=== PATIENT | male | born 1940 | race Caucasian/White ===

== ENCOUNTER 2017-02-23 09:25 | Emergency (ER) | payer MEDICARE, OTHER ==
[2017-02-23] MEDS ORDERED: SODIUM CHLORIDE 0.9% 1,000 ML IV ONE (09:45)
[2017-02-23] MEDS ORDERED: ONDANSETRON 4 MG/2 ML VIAL IVP STA (09:45)
--- NOTE | 2017-02-23 09:54 | ED Physician Documentation ---
History of Present Illness - Stated complaint Stated Complaint: ABD PX - Chief complaint Chief Complaint: Abd Pain - Additonal information Additional information: hx from pt 76 male prior surgery = regis ingiuinal hernia repairs approx 5 yr ago at [facility] to ER today with approx 5 days of nausea, no vomit, abd bloating, lower abd discomfort, and diarrhea - does not know if it is bloody because he is legally blind sx started approx a week after he returned from a fishing trip to [place], the friend he was fishing with is also ill with similar sx, they do not recall eating any bad food, no other travel, no recent ab Review of Systems Constitutional: denies: Fever, Chills Throat: denies: Sore throat Cardiac: denies: Chest pain / pressure Respiratory: denies: Dyspnea GI: reports: Abdominal Pain, Abdominal Swelling, Nausea, Diarrhea. denies: Bloody / black stool : denies: Dysuria Endocrine: denies: Easy bruising / bleeding Immunocompromised: denies: Immunocompromised PD PAST MEDICAL HISTORY - Past Medical History Past Medical History: Yes Cardiovascular: Hypertension : Other Musculoskeletal: Osteoarthritis - Past Surgical History Past Surgical History: Yes Ortho: Hip replacement, Shoulder arthroplasty, Other - Present Medications Home Medications: Ambulatory Orders Medication Instructions Recorded Confirmed Atenolol 25 mg PO BID 02/05/16 02/23/17 Tamsulosin [Flomax] 0.8 mg PO DAILY 02/05/16 02/23/17 Amox/Clav 875/125 [Augmentin] 1 each PO Q12H #20 tablet 02/23/17 Docusate Sodium 250Mg Capsule 250 mg PO DAILY #30 capsule 02/23/17 [Colace 250Mg Capsule] Hydroxychloroquine [Plaquenil] 200 mg PO DAILY 02/23/17 02/23/17 - Allergies Allergies/Adverse Reactions: Allergies Allergy/AdvReac Type Severity Reaction Status Date / Time propoxyphene HCl * AdvReac Diaphoresis Verified 02/05/16 20:41 [From [place]] - Social History Does the pt smoke?: No Smoking Status: Never smoker Does the pt drink ETOH?: Yes Does the pt have substance abuse?: No - Immunizations Immunizations are current?: No Immunizations: TDAP >10years/unknown PD ED PE NORMAL - Vitals Vital signs reviewed: Yes - General General: Alert and oriented X 3 - HEENT HEENT: PERRL - Neck Neck: Supple, no meningeal sign - Cardiac Cardiac: RRR - Respiratory Respiratory: No respiratory distress, Clear bilaterally - Abdomen Abdomen: Normal bowel sounds, Soft, Other (mild distension, TTP across lower abd s rebound or guarding) - Derm Derm: Normal color - Extremities Extremities: No deformity - Neuro Neuro: Alert and oriented X 3 Results - Vitals Vitals: Vital Signs - 24 hr 02/23/17 09:33 Temperature 35.6 C L Heart Rate 62 Respiratory 16 Rate Blood Pressure 172/73 H O2 Saturation 97 Oxygen O2 Source Room air - Labs Labs: Laboratory Tests 02/23/17 02/23/17 08:45 08:45 WBC 7.2 RBC 4.50 L Hgb 14.5 Hct 41.7 L MCV 92.8 MCH 32.3 H MCHC 34.8 RDW 12.6 Plt Count 116 L MPV 10.7 Neut # 5.0 Lymph # 0.9 L [place] # 1.1 H Eos # 0.2 Baso # 0.0 Absolute Nucleated RBC 0.00 Nucleated RBCs 0.1 Sodium 137 Potassium 3.9 Chloride 104 Carbon Dioxide 25 Anion Gap 8.0 BUN 17 Creatinine 0.9 Estimated GFR (MDRD) 82 L Glucose 138 H Calcium 9.2 Total Bilirubin 1.0 AST 25 ALT 27 Alkaline Phosphatase 68 Total Protein 6.9 Albumin 3.8 Globulin 3.1 Albumin/Globulin Ratio 1.2 Lipase 22 - Rads (name of study) CT abd pelvis Radiology: See rad report (early diverticulitis proximal sigmoid, no perf or abscess, appendix not seen but no secondary signs of appendicitis) PD MEDICAL DECISION MAKING - ED course ED course: uncomplicated diverticulitis can be txed as ouptpt with close fup Departure - Departure Disposition: 01 Home, Self Care Clinical Impression: Diverticulitis Qualifiers: Diverticulitis site: large intestine Diverticulitis bleeding: without bleeding Diverticulitis complication: without perforation or abscess Qualified Code(s): K57.32 - Diverticulitis of large intestine without perforation or abscess without bleeding Condition: Good Instructions: ED Diverticulitis, ED Diet Clear Liquid Follow-Up: Norbert Mendoza MD [Primary Care Provider] - Prescriptions: Amox/Clav 875/125 [Augmentin] 1 each PO Q12H #20 tablet Docusate Sodium 250Mg Capsule [Colace 250Mg Capsule] 250 mg PO DAILY #30 capsule Comments: The CT scan shows that you have diverticulitis - an infection of the small pouches that develop along the wall of the colon over time. There is no perforation or abscess and your lab works looks good. So I think it is safe for you to be treated with antibiotics at home and hat you do not need to be admitted to the hospital at this time. However, some case of diverticulitis, whether admitted to the hospital or not, get worse and do perforate or develop and abscess. So close follow up with your PMD is very important and if you get worse you should come back to the ER. It would also help if you stayed on a clear liquid diet for the next 2 days to rest your bowels. After that may advance your diet but try to avoid food with small sharp bits like seeds and popcorn. Also please get your blood pressure rechecked - it was high today
[2017-02-23 10:00] LABS: BASOPHILS % (AUTO) 0.6 %; EOSINOPHILS # (AUTO) 0.2 10^3/uL (0.0-0.7); HCT - HEMATOCRIT 41.7 % (42.0-52.0); HGB - HEMOGLOBIN 14.5 g/dL (14.0-18.0); LYMPHOCYTES # (AUTO) 0.9 10^3/uL (1.5-3.5); LYMPHOCYTES % (AUTO) 11.8 %; MEAN CORPUSCULAR HEMOGLOBIN 32.3 pg (27.0-31.0); MEAN CORPUSCULAR HGB CONC 34.8 g/dL (32.0-36.0); MEAN CORPUSCULAR VOLUME 92.8 fL (80.0-94.0); MEAN PLATELET VOLUME 10.7 fL (7.4-11.4); MONOCYTES # (AUTO) 1.1 10^3/uL (0.0-1.0); MONOCYTES % (AUTO) 15.6 %; NUCLEATED RED BLOOD CELLS AUTO 0.1 /100WBC; RED CELL DISTRIBUTION WIDTH 12.6 % (12.0-15.0); UNCORRECTED WHITE BLOOD COUNT 7.2 x10^3/uL; WHITE BLOOD COUNT 7.2 x10^3/uL (4.8-10.8)
[2017-02-23] MEDS ORDERED: ONDANSETRON 4 MG/2 ML VIAL ONE (10:05)
[2017-02-23 10:10] LABS: ALBUMIN/GLOBULIN RATIO 1.2 (1.0-2.2); CALCIUM 9.2 mg/dL (8.5-10.3); CREATININE 0.9 mg/dL (0.6-1.2); POTASSIUM 3.9 mmol/L (3.5-5.0); TOTAL PROTEIN 6.9 g/dL (6.7-8.2)
--- NOTE | 2017-02-23 10:38 | CT Preliminary Report ---
Exam: CT Abdomen/Pelvis W/O IMPRESSION: 1. Early diverticulitis of the proximal sigmoid colon without evidence of perforation. 2. No bowel obstruction. 3. The appendix is not visualized but there are no secondary signs of acute appendicitis. [facility] SITE ID: [id number]
--- NOTE | 2017-02-23 10:40 | CT Report ---
EXAM: CT ABDOMEN AND PELVIS (CT KUB) EXAM DATE: 02/23/2017 10:06 AM. CLINICAL HISTORY: Lower abd pain and bloating. COMPARISONS: None. TECHNIQUE: Routine axial helical CT imaging was performed through the abdomen and pelvis without IV c ontrast. Reconstructions: Coronal and sagittal. In accordance with CT protocol optimization, one or more of the following dose reduction techniques w ere utilized for this exam: automated exposure control, adjustment of mA and/or KV based on patient s ize, or use of iterative reconstructive technique. FINDINGS: Lung Bases: Unremarkable. Right Kidney/Ureter: No stones, hydronephrosis, or hydroureter. No perinephric fat stranding. Left Kidney/Ureter: No stones, hydronephrosis, or hydroureter. No perinephric fat stranding. Other Solid Organs: Noncontrast images of the solid organs are grossly unremarkable. Gallbladder/Bile Ducts: Unremarkable. Peritoneal Cavity: Diverticula in the descending colon and sigmoid colon with mild adjacent fat stran ding in the proximal sigmoid colon. No free air-fluid the abdomen or pelvis. No bowel obstruction. Th e appendix is not visualized but there are no secondary signs of acute appendicitis. Pelvic Organs: No bladder stones or wall thickening. Noncontrast images of the visualized pelvic orga ns are unremarkable. Vasculature: Unremarkable. Other: None. IMPRESSION: 1. Early diverticulitis of the proximal sigmoid colon without evidence of perforation. 2. No bowel obstruction. 3. The appendix is not visualized but there are no secondary signs of acute appendicitis. [facility] Referring Provider Line: [phone] SITE ID: [id number]
[2017-02-23] MEDS ORDERED: AMOX/CLAV 875 MG/125 MG TABLET PO STA (10:56)
[2017-02-23] MEDS ORDERED: AMOX/CLAV 875 MG/125 MG TABLET PO ONE (11:03)
[2017-02-23 11:14] VITALS: BP 155/82
== END 2017-02-23 11:17 | disposition home or self-care (01) ==
LOC: ED 09:25
DX: K57.32 Diverticulitis of large intestine without perforation or abscess without bleeding (principal); H54.8 Legal blindness, as defined in USA; I10 Essential (primary) hypertension; Z96.649 Presence of unspecified artificial hip joint
CPT/HCPCS: 36415; 74176; 80053; 83690; 85025; 96361; 96374; 99283; 99284; A9270

== ENCOUNTER 2017-05-30 07:13 | Outpatient (CLI) | payer MEDICARE, OTHER ==
[2017-05-30 09:09] LABS: INR 2.1 (0.8-1.2); PT - PROTHROMBIN TIME 22.6 secs (9.9-12.6)
== END 2017-05-30 07:14 | disposition home or self-care (01) ==
LOC: LAB.R 07:13
PROVIDERS: ATTEND Orthopaedic Surgery Adult Reconstructive Orthopaedic Surgery
DX: Z51.81 Encounter for therapeutic drug level monitoring (principal)
CPT/HCPCS: 85610

== ENCOUNTER 2017-06-02 08:00 | Outpatient (CLI) | payer MEDICARE, OTHER ==
[2017-06-02 18:37] LABS: INR 1.6 (0.8-1.2); PT - PROTHROMBIN TIME 17.5 secs (9.9-12.6)
== END 2017-06-02 08:01 | disposition home or self-care (01) ==
LOC: LAB.F 08:00
PROVIDERS: ATTEND Orthopaedic Surgery Adult Reconstructive Orthopaedic Surgery
DX: Z79.01 Long term (current) use of anticoagulants (principal)
CPT/HCPCS: 85610

== ENCOUNTER 2019-07-27 14:55 | Outpatient (CLI) | payer MEDICARE, OTHER ==
[2019-07-27 15:17] LABS: HGB - HEMOGLOBIN 15.2 g/dL (14.0-18.0); MEAN CORPUSCULAR HEMOGLOBIN 32.4 pg (27.0-31.0); MEAN CORPUSCULAR HGB CONC 33.6 g/dL (32.0-36.0); MEAN CORPUSCULAR VOLUME 96.6 fL (80.0-94.0); RED BLOOD COUNT 4.69 10^6/uL (4.70-6.10); RED CELL DISTRIBUTION WIDTH 12.9 % (12.0-15.0); WHITE BLOOD COUNT 7.6 x10^3/uL (4.8-10.8)
[2019-07-27 15:31] LABS: ALBUMIN 4.2 g/dL (3.2-5.5); ALBUMIN/GLOBULIN RATIO 1.8 (1.0-2.2); BILIRUBIN,TOTAL 0.9 mg/dL (0.2-1.0); CALCIUM 9.4 mg/dL (8.5-10.3); CREATININE 1.1 mg/dL (0.6-1.2); TOTAL PROTEIN 6.6 g/dL (6.7-8.2)
== END 2019-07-27 14:56 | disposition home or self-care (01) ==
LOC: LAB 14:55
PROVIDERS: ATTEND Internal Medicine Cardiovascular Disease
DX: R94.39 Abnormal result of other cardiovascular function study (principal)
CPT/HCPCS: 36415; 80053; 85027

== ENCOUNTER 2020-03-05 07:00 | Outpatient (CLI) | payer MEDICARE, OTHER | END 2020-03-05 23:59 | disposition home or self-care (01) | LOC: LAB.R 07:00 | PROVIDERS: ATTEND Internal Medicine | DX: R19.7 Diarrhea, unspecified (principal) | CPT/HCPCS: 81599; 83630; 87045; 87046; 87177; 87209; 87493 ==

== ENCOUNTER 2020-08-13 23:40 | Outpatient (CLI) | payer MEDICARE, OTHER | END 2020-08-13 23:41 | disposition critical access hospital (66) | LOC: EMS 23:40 | PROVIDERS: ATTEND Surgery | DX: R10.84 Generalized abdominal pain (principal); K59.00 Constipation, unspecified; R11.0 Nausea | CPT/HCPCS: A0425; A0427 ==

== ENCOUNTER 2020-08-14 00:13 | Emergency (ER) | payer MEDICARE, OTHER ==
[2020-08-14 00:46] LABS: BASOPHILS # (AUTO) 0.1 10^3/uL (0.0-0.1); BASOPHILS % (AUTO) 0.8 %; EOSINOPHILS # (AUTO) 0.4 10^3/uL (0.0-0.7); EOSINOPHILS % (AUTO) 4.8 %; HGB - HEMOGLOBIN 15.3 g/dL (14.0-18.0); LYMPHOCYTES # (AUTO) 0.9 10^3/uL (1.5-3.5); LYMPHOCYTES % (AUTO) 10.6 %; MEAN CORPUSCULAR HEMOGLOBIN 31.9 pg (27.0-31.0); MEAN CORPUSCULAR HGB CONC 33.1 g/dL (32.0-36.0); MEAN CORPUSCULAR VOLUME 96.5 fL (80.0-94.0); MEAN PLATELET VOLUME 12.8 fL (7.4-11.4); MONOCYTES # (AUTO) 0.5 10^3/uL (0.0-1.0); MONOCYTES % (AUTO) 6.2 %; NEUTROPHILS # (AUTO) 6.8 10^3/uL (1.5-6.6); NEUTROPHILS % (AUTO) 77.3 %; PLT - PLATELET COUNT 90 10^3/uL (130-450); RED BLOOD COUNT 4.79 10^6/uL (4.70-6.10); RED CELL DISTRIBUTION WIDTH 12.8 % (12.0-15.0); WHITE BLOOD COUNT 8.8 x10^3/uL (4.8-10.8)
[2020-08-14 00:57] LABS: ALBUMIN 4.2 g/dL (3.2-5.5); ALBUMIN/GLOBULIN RATIO 1.6 (1.0-2.2); BILIRUBIN,TOTAL 0.9 mg/dL (0.2-1.0); CALCIUM 9.5 mg/dL (8.5-10.3); CREATININE 0.8 mg/dL (0.6-1.2); TOTAL PROTEIN 6.8 g/dL (6.7-8.2)
--- NOTE | 2020-08-14 01:03 | ED Physician Documentation ---
History of Present Illness - Stated complaint Stated Complaint: ABD PX - Chief complaint Chief Complaint: Abd Pain - History obtained from History obtained from: Patient - Additonal information Additional information: 79-year-old man with past medical history of diverticulitis, high blood pressure, coronary artery disease status post CABG, A. fib, presents with sudden onset abdominal pain around 10 PM this evening that he described as 7 out of 10, dull, constant, located in the left lower quadrant radiating to the left upper quadrant and associated with mild chest discomfort now resolved, associated with nausea but no vomiting. The pain resolved on its own while being transported to the hospital by ems. Patient denies fevers, urinary symptoms, rectal bleeding. does endorse mild chronic diarrhea, that he states his primary has done stool studies on with no evidence of infectious cause. Last BM soft brown stool 2 days ago. Review of Systems Ten Systems: 10 systems reviewed and negative Constitutional: denies: Fever, Chills GI: reports: Abdominal Pain, Nausea, Diarrhea. denies: Vomiting : denies: Dysuria PD PAST MEDICAL HISTORY - Past Medical History Cardiovascular: Hypertension : Other Musculoskeletal: Osteoarthritis - Past Surgical History Past Surgical History: Yes Ortho: Hip replacement, Shoulder arthroplasty, Other - Present Medications Home Medications: Ambulatory Orders Medication Instructions Recorded Confirmed Atorvastatin Calcium 40 mg PO DAILY 08/14/20 08/14/20 Cholecalciferol [Vitamin D3] 2,000 unit PO DAILY 08/14/20 08/14/20 Glucosamine HCl 1,500 mg PO BID 08/14/20 08/14/20 Metoprolol Tartrate [Lopressor] 25 mg PO BID 08/14/20 08/14/20 Pantoprazole [Protonix] 40 mg PO DAILY 08/14/20 08/14/20 Simethicone [Gas Relief] 180 mg PO DAILY PRN 08/14/20 08/14/20 Tamsulosin HCl [Flomax] 0.4 mg PO DAILY 08/14/20 08/14/20 - Allergies Allergies/Adverse Reactions: Allergies Allergy/AdvReac Type Severity Reaction Status Date / Time propoxyphene HCl * AdvReac Diaphoresis Verified 08/14/20 00:19 [From [place]von] - Social History Does the pt smoke?: No Smoking Status: Never smoker Does the pt drink ETOH?: Yes Does the pt have substance abuse?: No - Immunizations Immunizations are current?: No Immunizations: TDAP >10years/unknown PD ED PE NORMAL - Vitals Vital signs reviewed: Yes - General General: Alert and oriented X 3 - HEENT HEENT: Atraumatic, PERRL, EOMI - Neck Neck: Supple, no meningeal sign - Cardiac Cardiac: RRR - Respiratory Respiratory: No respiratory distress, Clear bilaterally - Abdomen Abdomen: Non tender, Non distended, Other (discomfort to palpation in LLQ) - Male Male : Deferred - Rectal Rectal: Other (rectal exam soft brown stool . enlarged prostate) - Back Back: No CVA TTP - Derm Derm: Normal color - Extremities Extremities: No deformity - Neuro Neuro: Alert and oriented X 3 - Psych Psych: Normal mood, Normal affect Results - Vitals Vitals: Vital Signs - 24 hr 08/14/20 08/14/20 08/14/20 00:19 02:10 02:38 Temperature 36.6 C Heart Rate 68 60 62 Respiratory 16 12 14 Rate Blood Pressure 159/70 H 134/88 H 134/84 H O2 Saturation 94 96 96 Oxygen O2 Source Room air - EKG (time done) 0056 Rate: Rate (enter#) (69) Rhythm: NSR - Labs Labs: Laboratory Tests 08/14/20 08/14/20 08/14/20 00:39 00:39 01:07 WBC 8.8 RBC 4.79 Hgb 15.3 Hct 46.2 MCV 96.5 H MCH 31.9 H MCHC 33.1 RDW 12.8 Plt Count 90 L MPV 12.8 H Neut # (Auto) 6.8 H Lymph # (Auto) 0.9 L [place] # (Auto) 0.5 Eos # (Auto) 0.4 Baso # (Auto) 0.1 Absolute Nucleated RBC 0.00 Nucleated RBC % 0.0 Sodium 140 Potassium 3.8 Chloride 104 Carbon Dioxide 26 Anion Gap 10.0 BUN 20 Creatinine 0.8 Estimated GFR (MDRD) 94 Glucose 145 H Lactic Acid 1.1 Calcium 9.5 Total Bilirubin 0.9 AST 88 H ALT 64 H Alkaline Phosphatase 75 Total Protein 6.8 Albumin 4.2 Globulin 2.6 Albumin/Globulin Ratio 1.6 Lipase 28 Urine Color Urine Clarity Urine pH Ur Specific [place] Urine Protein Urine Glucose (UA) Urine Ketones Urine Occult Blood Urine Nitrite Urine Bilirubin Urine Urobilinogen Ur Leukocyte Esterase Ur Microscopic Review Urine Culture Comments 08/14/20 01:10 WBC RBC Hgb Hct MCV MCH MCHC RDW Plt Count MPV Neut # (Auto) Lymph # (Auto) [place] # (Auto) Eos # (Auto) Baso # (Auto) Absolute Nucleated RBC Nucleated RBC % Sodium Potassium Chloride Carbon Dioxide Anion Gap BUN Creatinine Estimated GFR (MDRD) Glucose Lactic Acid Calcium Total Bilirubin AST ALT Alkaline Phosphatase Total Protein Albumin Globulin Albumin/Globulin Ratio Lipase Urine Color YELLOW Urine Clarity CLEAR Urine pH 5.5 Ur Specific [place] 1.025 Urine Protein NEGATIVE Urine Glucose (UA) NEGATIVE Urine Ketones NEGATIVE Urine Occult Blood NEGATIVE Urine Nitrite NEGATIVE Urine Bilirubin NEGATIVE Urine Urobilinogen 0.2 (NORMAL) Ur Leukocyte Esterase NEGATIVE Ur Microscopic Review NOT INDICATED Urine Culture Comments NOT INDICATED PD MEDICAL DECISION MAKING - ED course ED course: 79-year-old man presents with sudden onset abdominal pain that resolved on its own this evening. Likely bowel gas related versus diverticulitis. He does have constipation and diarrhea alternating intermittently and says that he is planning on following up with a pharmacy intake technician. Patient had findings on CT concerning for increased fecal burden as well as a distended bladder. Some question of gallstones however he is nontender in RUQ. I offered a catheterization to the patient and he prefers to follow up with outpatient urology since his symptoms have resolved on their own. Return precautions given. Departure - Departure Disposition: 01 Home, Self Care Clinical Impression: Abdominal pain, Thrombocytopenia, Urinary retention, BPH (benign prostatic hyperplasia) Condition: Good Instructions: ED Abdominal Pain Unkn Cause Comments: Your platelets are mildly low (90k). You should have your blood work rechecked by your primary doctor. Your CT showed bladder distension, so you should follow up with urology about this. Return to the ed for any new or worsening symptoms or other concerns. [email or web address] [id number] , [id number], [place] [address] < 1 mi Discharge Date/Time: 08/14/20 02:38
[2020-08-14] MEDS ORDERED: IOVERSOL 320 100 ML VIAL IVP ONE ×2 (01:20→01:51)
[2020-08-14 01:28] LABS: BILIRUBIN,URINE NEGATIVE (NEGATIVE); GLUCOSE, URINE (UA) NEGATIVE (NEGATIVE); KETONES,URINE (UA) NEGATIVE (NEGATIVE); LEUKOCYTE ESTERASE, URINE NEGATIVE (NEGATIVE); NITRITE,URINE NEGATIVE (NEGATIVE); OCCULT BLOOD,URINE NEGATIVE (NEGATIVE); PH,URINE 5.5 PH (5.0-7.5); PROTEIN,URINE NEGATIVE (NEGATIVE); UROBILINOGEN,URINE 0.2 (NORMAL) E.U./dL (NORMAL)
[2020-08-14 01:30] LABS: CLARITY,URINE CLEAR (CLEAR)
[2020-08-14 02:39] VITALS: BP 134/84
--- NOTE | 2020-08-14 08:26 | CT Report ---
PROCEDURE: Abdomen/Pelvis W INDICATIONS: LLQ pain, hx diverticulitis CONTRAST: IV CONTRAST: Optiray 320 ml: 100 PO CONTRAST: *NO PO CONTRAST TECHNIQUE: After the administration of intravenous contrast, 5 mm thick sections acquired from the diaphragms to the symphysis. 5 mm thick coronal and sagittal reformats were acquired. For radiation dose reducti on, the following was used: automated exposure control, adjustment of mA and/or kV according to jasvir ent size. COMPARISON: CT abdomen/pelvis 02/23/2017 FINDINGS: Image quality: Excellent. ABDOMEN: Lung bases: Lung bases are clear. Heart size is normal. Solid organs: Liver is normal in size and enhancement. Gallbladder contains a small amount of layer ing sludge. No gallbladder wall thickening or other signs of acute cholecystitis are identified. Sen iary system is non dilated. Pancreas enhances normally. Spleen is at the upper limits of normal in size. No adrenal nodules. Kidneys demonstrate normal size and enhancement, without hydronephrosis. A simple appearing cyst is seen in the interpolar region of the right kidney. Peritoneum and bowel: Multiple diverticula are seen in the colon without signs of acute diverticuliti s. Moderate stool is seen in the rectum. No signs of bowel obstruction. Probable postsurgical changes related to prior fundoplication seen at the gastroesophageal junction. There is no ascites or pneumo peritoneum. Nodes and vessels: No retroperitoneal or mesenteric adenopathy by size criteria. Aorta and inferior vena cava are normal in size. Moderate atherosclerotic calcifications are seen in the aorta. Miscellaneous: No ventral hernias. PELVIS: Genitourinary: Bladder wall thickness is normal. The bladder is moderately distended. Miscellaneous: No inguinal hernias or adenopathy. Bones: No suspicious bony lesions. No vertebral body compression fractures. Postsurgical changes a re seen from right hip arthroplasty with associated metallic streak artifact that mildly compromises evaluation of the adjacent structures. Degenerative changes are seen in the included portions of the spine. IMPRESSION: 1. Colonic diverticulosis without signs of acute diverticulitis. No signs of bowel obstruction. Mode rate stool in the colon and rectum. 2. Layering sludge in the gallbladder without signs of acute cholecystitis. 3. Moderately distended urinary bladder. There is no significant discrepancy when compared with the overnight teleradiology report. Reviewed by: Lucian Mart MD on 08/14/2020 8:25 AM PST Approved by: Lucian Mart MD on 08/14/2020 8:25 AM [facility] Station ID: [id number]
== END 2020-08-14 02:38 | disposition home or self-care (01) ==
LOC: EDUNIT# → SUPCPDRO 00:13 → ED 00:13
DX: N40.1 Benign prostatic hyperplasia with lower urinary tract symptoms (principal); R33.8 Other retention of urine; D69.6 Thrombocytopenia, unspecified; I10 Essential (primary) hypertension; Z95.1 Presence of aortocoronary bypass graft; I25.10 Atherosclerotic heart disease of native coronary artery without angina pectoris
CPT/HCPCS: 36415; 74177; 80053; 81003; 83605; 83690; 85025; 93005; 99284; Q9967; 81001; 87086

== ENCOUNTER 2020-11-26 06:59 | Emergency (ER) | payer MEDICARE, OTHER ==
[2020-11-26 07:27] LABS: BILIRUBIN,URINE NEGATIVE (NEGATIVE); GLUCOSE, URINE (UA) NEGATIVE (NEGATIVE); KETONES,URINE (UA) NEGATIVE (NEGATIVE); LEUKOCYTE ESTERASE, URINE SMALL (NEGATIVE); NITRITE,URINE POSITIVE (NEGATIVE); OCCULT BLOOD,URINE MODERATE (NEGATIVE); PH,URINE 5.5 PH (5.0-7.5); PROTEIN,URINE NEGATIVE (NEGATIVE); UROBILINOGEN,URINE 0.2 (NORMAL) E.U./dL (NORMAL)
[2020-11-26 07:29] VITALS: BP 124/70
[2020-11-26 07:31] LABS: CLARITY,URINE CLOUDY (CLEAR)
[2020-11-26 07:40] LABS: BACTERIA,URINE Moderate /HPF (None Seen); SQUAMOUS EPITHELIAL CELL,UR RARE Squamous (<= Few); WBC CLUMPS,URINE PRESENT; WBC,URINE >25 /HPF (0-3)
--- NOTE | 2020-11-26 07:43 | ED Physician Documentation ---
History of Present Illness - Stated complaint Stated Complaint: MALE /FEVER - Chief complaint Chief Complaint: UTI - History obtained from History obtained from: Patient - Additonal information Additional information: 80-year-old man with history of urinary retention on a self-catheterization regimen for the past month presents with UTI 3 weeks ago and 2 to 3 days of dysuria, urgency, and suprapubic pain that is nonradiating, aching, constant, gradual in onset, worse with urination. Patient states that his took his temperature at home this morning and it was 100 degrees orally. He otherwise feels well. Denies hematuria or back pain. Review of Systems Constitutional: reports: Fever GI: reports: Abdominal Pain. denies: Nausea : reports: Dysuria, Hesitancy Musculoskeletal: denies: Back pain Neurologic: denies: Focal weakness, Numbness PD PAST MEDICAL HISTORY - Past Medical History Past Medical History: Yes Cardiovascular: Hypertension, High cholesterol Respiratory: None Neuro: None Endocrine/Autoimmune: None GI: GERD, Other : Retention, Other HEENT: Chronic vision loss, Chronic hearing loss Musculoskeletal: Osteoarthritis Derm: None - Past Surgical History Past Surgical History: Yes Ortho: Hip replacement, Shoulder arthroplasty, Other - Present Medications Home Medications: Ambulatory Orders Medication Instructions Recorded Confirmed Atorvastatin Calcium 40 mg PO DAILY 08/14/20 11/26/20 Cholecalciferol [Vitamin D3] 2,000 unit PO DAILY 08/14/20 11/26/20 Glucosamine HCl 1,500 mg PO BID 08/14/20 11/26/20 Metoprolol Tartrate [Lopressor] 25 mg PO BID 08/14/20 11/26/20 Pantoprazole [Protonix] 40 mg PO DAILY 08/14/20 11/26/20 Simethicone [Gas Relief] 180 mg PO DAILY PRN 08/14/20 11/26/20 Tamsulosin HCl [Flomax] 0.4 mg PO BID 08/14/20 11/26/20 Cefpodoxime Proxetil [Vantin] 100 mg PO Q12H #20 tablet 11/26/20 Finasteride [Proscar] 5 mg PO DAILY 11/26/20 11/26/20 Lisinopril [Zestril] 10 mg PO DAILY 11/26/20 11/26/20 - Allergies Allergies/Adverse Reactions: Allergies Allergy/AdvReac Type Severity Reaction Status Date / Time propoxyphene HCl * AdvReac Diaphoresis Verified 11/26/20 07:06 [From [place]von] - Social History Does the pt smoke?: No Smoking Status: Former smoker Does the pt drink ETOH?: Yes Does the pt have substance abuse?: No - Immunizations Immunizations are current?: No Immunizations: TDAP >10years/unknown PD ED PE NORMAL - Vitals Vital signs reviewed: Yes - General General: Alert and oriented X 3, No acute distress, Well developed/nourished - HEENT HEENT: Atraumatic, PERRL, EOMI - Abdomen Abdomen: Non tender, Non distended, Other (Suprapubic discomfort to palpation) - Back Back: No CVA TTP - Derm Derm: Normal color, Warm and dry - Extremities Extremities: No deformity - Neuro Neuro: Alert and oriented X 3 - Psych Psych: Normal mood, Normal affect Results - Vitals Vitals: Vital Signs - 24 hr 11/26/20 11/26/20 07:07 07:28 Temperature 36.3 C L Heart Rate 63 61 Respiratory 18 18 Rate Blood Pressure 131/67 H 124/70 O2 Saturation 97 97 Oxygen O2 Source Room air - Labs Labs: Laboratory Tests 11/26/20 07:20 Urine Color YELLOW Urine Clarity CLOUDY Urine pH 5.5 Ur Specific [place] 1.025 Urine Protein NEGATIVE Urine Glucose (UA) NEGATIVE Urine Ketones NEGATIVE Urine Occult Blood MODERATE H Urine Nitrite POSITIVE H Urine Bilirubin NEGATIVE Urine Urobilinogen 0.2 (NORMAL) Ur Leukocyte Esterase SMALL H Ur Microscopic Review INDICATED Urine Culture Comments Not Reportable PD MEDICAL DECISION MAKING - ED course ED course: 30-year-old man presents with UTI after self-catheterization. Advised the patient to use sterile technique and provided him with sterile gloves. He will follow up with a catheter nurse on Friday to go for catheter care. Patient will take his antibiotics and follow-up with his primary doctor. He is in [place] right now [place] Strict return precautions given. Departure - Departure Disposition: Home, Self Care Clinical Impression: UTI (urinary tract infection) Condition: Good Instructions: ED UTI Cystitis Male Follow-Up: Trae Gomez [Physician No Access] - Rasta Vega DO [Provider Admit Priv/Credential] - Darrick Bonds MD [Physician No Access] - Prescriptions: Cefpodoxime Proxetil [Vantin] 100 mg PO Q12H #20 tablet Comments: You were seen in the emergency department for UTI. Follow-up with your primary doctor this week. Return to the emergency department if you have new or worsening symptoms or other concerns. 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
== END 2020-11-26 07:57 | disposition home or self-care (01) ==
LOC: ED 06:59
DX: T83.518A Infection and inflammatory reaction due to other urinary catheter, initial encounter (principal); Y84.6 Urinary catheterization as the cause of abnormal reaction of the patient, or of later complication, without mention of misadventure at the time of the procedure; Z87.891 Personal history of nicotine dependence
CPT/HCPCS: 81001; 81003; 87077; 87086; 87181; 99283; 99284

== ENCOUNTER 2021-03-06 14:24 | Outpatient (CLI) | payer MEDICARE, OTHER | END 2021-03-06 14:25 | disposition short-term general hospital (02) | LOC: EMS 14:24 | DX: R10.9 Unspecified abdominal pain (principal); R07.9 Chest pain, unspecified | CPT/HCPCS: A0425; A0427 ==

== ENCOUNTER 2022-12-03 15:22 | Emergency (ER) | payer MEDICARE, OTHER ==
[2022-12-03 15:54] LABS: BASOPHILS % (AUTO) 0.7 %; EOSINOPHILS # (AUTO) 0.3 10^3/uL (0.0-0.7); EOSINOPHILS % (AUTO) 5.4 %; HCT - HEMATOCRIT 43.7 % (42.0-52.0); HGB - HEMOGLOBIN 14.8 g/dL (14.0-18.0); LYMPHOCYTES # (AUTO) 1.3 10^3/uL (1.5-3.5); LYMPHOCYTES % (AUTO) 21.1 %; MEAN CORPUSCULAR HEMOGLOBIN 31.8 pg (27.0-31.0); MEAN CORPUSCULAR HGB CONC 33.9 g/dL (32.0-36.0); MEAN CORPUSCULAR VOLUME 93.8 fL (80.0-94.0); MEAN PLATELET VOLUME 11.8 fL (7.4-11.4); MONOCYTES # (AUTO) 0.7 10^3/uL (0.0-1.0); MONOCYTES % (AUTO) 12.2 %; NEUTROPHILS # (AUTO) 3.7 10^3/uL (1.5-6.6); NEUTROPHILS % (AUTO) 60.3 %; PLT - PLATELET COUNT 122 10^3/uL (130-450); RED BLOOD COUNT 4.66 10^6/uL (4.70-6.10); RED CELL DISTRIBUTION WIDTH 13.1 % (12.0-15.0); WHITE BLOOD COUNT 6.1 x10^3/uL (4.8-10.8)
[2022-12-03 16:05] LABS: ALBUMIN/GLOBULIN RATIO 1.4 (1.0-2.2); BILIRUBIN,TOTAL 0.6 mg/dL (0.2-1.0); CALCIUM 9.3 mg/dL (8.5-10.3); CREATININE 1.1 mg/dL (0.6-1.2); TOTAL PROTEIN 6.8 g/dL (6.7-8.2)
--- NOTE | 2022-12-03 16:18 | XRAY Report ---
PROCEDURE: Chest 1 View X-Ray INDICATIONS: chest pain TECHNIQUE: One view of the chest was acquired. COMPARISON: None. FINDINGS: Surgical changes and devices: None. Lungs and pleura: No pleural effusions or pneumothorax. Lungs are clear. Mediastinum: Mediastinal contours appear normal. Heart size is normal. Bones and chest wall: No suspicious bony lesions. Overlying soft tissues appear unremarkable. [place] rnotomy wires. A linear opacity projecting over right midlung, location indeterminate on single view. IMPRESSION: No acute radiographic abnormality. Linear opacity projects over right midlung, location indeterminate. Reviewed by: Barney Elkins MD on 12/03/2022 4:16 PM PDT Approved by: Barney Elkins MD on 12/03/2022 4:16 PM PDT Station ID: [id number]
--- NOTE | 2022-12-03 17:23 | ED Physician Documentation ---
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 Patient is followed by GI at [facility]. Last had an EGD about a Year ago. Patient does not know if he has melena or hematochezia because he is legally blind. Patient denies exertional chest pain. He notes that his flares for esophagitis typically occur after coffee or a glass of wine. He is always able to manage the symptoms but has been unable to this week. Patient reports that the pain is in his upper esophageal area. Is not associated with exertion, dyspnea or orthopnea. Review of Systems Constitutional: denies: Fever, Chills Eyes: reports: Reviewed and negative Throat: reports: Reviewed and negative Cardiac: reports: Reviewed and negative GI: reports: Abdominal Pain : reports: Reviewed and negative Skin: reports: Reviewed and negative Musculoskeletal: reports: Reviewed and negative PD PAST MEDICAL HISTORY - Past Medical History Cardiovascular: Hypertension, High cholesterol Respiratory: None Neuro: None Endocrine/Autoimmune: None GI: GERD, Other : Retention, Other HEENT: Chronic vision loss, Chronic hearing loss Musculoskeletal: Osteoarthritis Derm: None - Past Surgical History Past Surgical History: Yes Ortho: Hip replacement, Shoulder arthroplasty, Other - Present Medications Home Medications: Ambulatory Orders Medication Instructions Recorded Confirmed Atorvastatin Calcium 40 mg PO DAILY 08/14/20 11/26/20 Cholecalciferol [Vitamin D3] 2,000 unit PO DAILY 08/14/20 12/03/22 Metoprolol Tartrate [Lopressor] 25 mg PO BID 08/14/20 12/03/22 Pantoprazole [Protonix] 40 mg PO DAILY 08/14/20 12/03/22 Simethicone [Gas Relief] 180 mg PO DAILY PRN 08/14/20 12/03/22 Tamsulosin HCl [Flomax] 0.4 mg PO BID 08/14/20 12/03/22 glucosamine HCL [Glucosamine HCl] 1,500 mg PO BID 08/14/20 12/03/22 Cefpodoxime Proxetil [Vantin] 100 mg PO Q12H #20 tablet 11/26/20 12/03/22 Finasteride [Proscar] 5 mg PO DAILY 11/26/20 12/03/22 Lisinopril [Zestril] 10 mg PO DAILY 11/26/20 11/26/20 Apixaban [Eliquis] 5 mg PO DAILY 12/03/22 12/03/22 Lidocaine Viscous 2% [Xylocaine 5 ml MM Q4H #100 ml 12/03/22 Viscous 2%] - Allergies Allergies/Adverse Reactions: Allergies Allergy/AdvReac Type Severity Reaction Status Date / Time propoxyphene HCl * AdvReac Diaphoresis Verified 12/03/22 15:37 [From [place]] - Social History Does the pt smoke?: No Smoking Status: Former smoker Does the pt drink ETOH?: Yes Does the pt have substance abuse?: No - Immunizations Immunizations are current?: No Immunizations: TDAP >10years/unknown PD ED PE NORMAL - General General: Alert and oriented X 3, No acute distress, Well developed/nourished - HEENT HEENT: Atraumatic, Moist mucous membranes - Neck Neck: Supple, no meningeal sign, No adenopathy - Cardiac Cardiac: RRR, No murmur - Respiratory Respiratory: No respiratory distress, Clear bilaterally - Abdomen Abdomen: Normal bowel sounds, Soft, Non tender - Back Back: No CVA TTP - Derm Derm: Normal color, Warm and dry - Extremities Extremities: No deformity - Neuro Neuro: Alert and oriented X 3, 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 Relevant findings are: Rate: Rate (enter#) (55) Rhythm: NSR Carmine: Normal Intervals: Normal MS QRS: Normal Ischemia: Normal ST segments Compare to prior EKG: Old EKG unavailable Computer interpretation: Agree with computer - Labs Labs: Laboratory Tests 12/03/22 12/03/22 12/03/22 15:46 15:46 15:46 WBC 6.1 RBC 4.66 L Hgb 14.8 Hct 43.7 MCV 93.8 MCH 31.8 H MCHC 33.9 RDW 13.1 Plt Count 122 L MPV 11.8 H Neut # (Auto) 3.7 Lymph # (Auto) 1.3 L Floyd # (Auto) 0.7 Eos # (Auto) 0.3 Baso # (Auto) 0.0 Absolute Nucleated RBC 0.00 Nucleated RBC % 0.0 Sodium 141 Potassium 4.0 Chloride 104 Carbon Dioxide 29 Anion Gap 8.0 BUN 25 H Creatinine 1.1 Estimated GFR (MDRD) 64 L Glucose 100 Calcium 9.3 Total Bilirubin 0.6 AST 33 ALT 21 Alkaline Phosphatase 55 Troponin I High Sens 6.5 Total Protein 6.8 Albumin 4.0 Globulin 2.8 Albumin/Globulin Ratio 1.4 Lipase 35 - Rads (name of study) cxr Relevant Findings:: Final report received (No acute cardiopulmonary process) PD Medical Decision Making - ED course Complexity details: reviewed results, re-evaluated patient, considered differential, d/w patient ED course: 82-year-old male presents to the emergency department for evaluation of upper esophageal/chest pain. He has a known history of Marino's esophagitis and typically takes Protonix, Pepcid AC as needed and/or Pepcid Complete. He does drink coffee and wine daily. However his usual medications are not squelch in the symptoms. He does not have exertional pain. Uncertain if he has melena or hematochezia as he is blind and unable to evaluate his stools. Here in the emergency department we did obtain a CBC, electrolytes and troponin. Per my interpretation no acute worrisome findings. A chest x-ray without findings suggestive of pneumonia pneumothorax or pleural effusion. I did give this gentleman 10 mL of lidocaine orally as well as a single dose of Maalox and on reevaluation he reports the symptoms have been resolved. Clinically I suspect that this is a flare of his esophagitis. Given the unremarkable troponin despite about a week of symptoms I do not feel this is consistent with ACS. He will be discharged with prescription for lidocaine and he can use Maalox as needed. He will follow closely with his GI at [place]. The usual emergent return precautions for worsening symptoms were discussed Departure - Departure Disposition: 01 Home, Self Care Clinical Impression: Esophagitis Condition: Stable Record reviewed to determine appropriate education?: Yes Follow-Up: LEXII HATHAWAY, [place] [Primary Care Provider] - Prescriptions: Lidocaine Viscous 2% [Xylocaine Viscous 2%] 5 ml MM Q4H #100 ml Comments: Víctor you were seen today in the emergency department for evaluation of pain in your upper esophagus that you reported as being similar to your known history of esophagitis. Your usual medications including Protonix, Pepcid AC and Pepcid Complete are not working. Here in the emergency department we did obtain routine labs including a troponin as well as an x-ray and an EKG that did not show any worrisome findings. We did give you a medication called lidocaine as well as some Maalox which seems to improve the symptoms. I am sending a prescription for lidocaine to the [facility] in [place] for you. This can be used 2-3 times a day for bad esophagitis if your Pepcid AC, Pepcid Complete do not work for you. You can also buy a bottle of Maalox and use 30 mL or 1 ounce 2-3 times a day to help with symptoms. It is important that you discuss this ED visit with your feeder catcher as they may elect to do a new EGD to ensure no more or new worrisome erosions.
[2022-12-03] MEDS: MAG HYDROX/AL HYDROX/SIMETH 30 ML UDC PO STA (17:34)
[2022-12-03] MEDS: LIDOCAINE VISCOUS 2% 15 ML ORAL SYRINGE MM STA (17:35)
[2022-12-03 18:40] VITALS: BP 175/85
== END 2022-12-03 18:40 | disposition home or self-care (01) ==
LOC: ED 15:22
DX: K20.90 Esophagitis, unspecified without bleeding (principal); I10 Essential (primary) hypertension; F17.200 Nicotine dependence, unspecified, uncomplicated
CPT/HCPCS: 36415; 71045; 80053; 83690; 84484; 85025; 93005; 99284; A9270